=== PATIENT | female | born 1945 | race Caucasian/White ===

== ENCOUNTER 2016-10-12 10:44 | Outpatient (RCR) | payer MEDICARE, OTHER ==
[~2016-10-12 10:44] MED LIST: AMLO5TAB2 PO; ATEN-158 PO; AZIT250T5 PO; AZIT250T81 PO; BIOT1TAB12 PO; CHOL100084 PO; CLOP75TA PO; CYAN50TA PO; FLUT100B IH; FOLI1TAB24 PO; GEMF600T3 PO; LEVO500T2 PO; LEVO750T9 PO; LIPA1CAP67 PO; LORA1TAB PO; LOSA50TA6 PO; MAGN400C PO; MULT-608 PO; OMEG1CAP24 PO; OXYC1TAB95 PO; PRD20T PO; PRED10TA22 PO; PRED20TA PO; ZINC50TA5 PO
[2016-10-23] MEDS ORDERED: ALBU2.5V4 IH (18:57)
[2016-10-23] MEDS ORDERED: PRED10TA22 PO (18:57)
== END 2016-10-26 13:01 | disposition home or self-care (01) ==
PROVIDERS: ATTEND Physician Assistant
DX: M47.896 Other spondylosis, lumbar region (principal); M25.551 Pain in right hip; R10.2 Pelvic and perineal pain; M53.3 Sacrococcygeal disorders, not elsewhere classified

== ENCOUNTER 2016-10-23 15:50 | Emergency (ER) | payer MEDICARE, OTHER ==
[~2016-10-23] VITALS: Ht 175.3 cm; Wt 61.2 kg
[2016-10-23] MEDS ORDERED: RX-ALBUTEROL NEB 2.5 MG/3 ML PACK #5 IH ONE (16:01)
[2016-10-23] MEDS ORDERED: methylPREDNISolone 125 MG (Solu-MEDROL) VIAL ONE (16:08)
[2016-10-23] MEDS ORDERED: methylPREDNISolone 125 MG (Solu-MEDROL) VIAL IV STA (16:09)
[2016-10-23] MEDS ORDERED: RT-ALBUTEROL SULF 2.5 MG/3 ML PRE-MIX VIAL INH STA (16:13)
[2016-10-23] MEDS ORDERED: RT-IPRATROPIUM (ATROVENT) 0.5MG/2.5ML AMP IH ONE (16:15)
[2016-10-23 16:24] LABS: ABG BASE EXCESS 3.8 MMOL/L (-2.5-2.5); ABG HCO3 28 MMOL/L (23-27); ABG OXYGEN SATURATION 98 % (94-100); ABG PCO2 47 MMHG (35-45); ABG PO2 87 MMHG (79-93); ABG TCO2 29.8 MMOL/L (21.0-31.0); ALLENS TEST YES-POS; BASOPHILS % (AUTO) 1 % (0-10); EOSINOPHILS # (AUTO) 0.3 10^3/uL (0.0-0.3); EOSINOPHILS % (AUTO) 4 % (0-10); LYMPHOCYTES % (AUTO) 13 % (12-44); MEAN CORPUSCULAR HEMOGLOBIN 28 PG (25-34); MEAN CORPUSCULAR HGB CONC 33 G/DL (32-36); MEAN CORPUSCULAR VOLUME 86 FL (80-99); MEAN PLATELET VOLUME 9.3 FL (7.4-10.4); MONOCYTES # (AUTO) 0.7 X 10^3 (0.0-1.0); MONOCYTES % (AUTO) 9 % (0-12); NEUTROPHILS # (AUTO) 5.8 X 10^3 (1.8-7.8); NEUTROPHILS % (AUTO) 74 % (42-75); PLATELET COUNT 258 10^3/uL (130-400); RED BLOOD COUNT 5.11 10^6/uL (4.35-5.85); RED CELL DISTRIBUTION WIDTH 14.1 % (10.0-14.5); WHITE BLOOD COUNT 7.9 10^3/uL (4.3-11.0)
[2016-10-23 16:25] LABS: PATIENT TEMP 98.4
[2016-10-23] MEDS ORDERED: LORazepam INJ 2 MG/ML (ATIVAN) VIAL IVP ONE (16:30)
--- NOTE | 2016-10-23 16:31 | Diagnostic Imaging Report ---
INDICATION: Shortness of breath. Comparison with 09/05/2015. FINDINGS: Rather severe obstructive pulmonary disease is again noted bilaterally. There has been development of consolidated infiltrate in the right lower lobe since previous exam. The heart is mildly enlarged today. There is no evidence of pulmonary edema. No pneumothorax. There is minimal right basilar effusion. IMPRESSION: Findings are consistent with development of right lower lobe pneumonia superimposed on rather severe obstructive lung disease. Dictated by: Dictated on workstation # [id number]
[2016-10-23] MEDS ORDERED: IOHEXOL 350 MG/ML 150 ML (OMNIPAQUE 350) VIAL IV ONE (16:45)
[2016-10-23] MEDS ORDERED: NS 100 ML (IVPB) BAG IV ONE (16:45)
[2016-10-23 16:47] LABS: ALANINE AMINOTRANSFERASE 13 U/L (0-55); ALBUMIN 4.6 G/DL (3.2-4.5); ANION GAP 9 MMOL/L (5-14); ASPARTATE AMINO TRANSFERASE 18 U/L (5-34); BILIRUBIN,TOTAL 0.9 MG/DL (0.1-1.0); BLOOD UREA NITROGEN 9 MG/DL (7-18); BUN/CREATININE RATIO 13; CARBON DIOXIDE 32 MMOL/L (21-32); CHLORIDE 102 MMOL/L (98-107); CREATININE SERUM 0.72 MG/DL (0.60-1.30); GFR ESTIMATED > 60; GLUCOSE 107 MG/DL (70-105); MAGNESIUM 2.3 MG/DL (1.8-2.4); POTASSIUM 3.6 MMOL/L (3.6-5.0); SODIUM 143 MMOL/L (135-145); TOTAL PROTEIN 7.1 G/DL (6.4-8.2)
[2016-10-23 16:53] LABS: TROPONIN I < 0.30 NG/ML (<0.30)
[2016-10-23 16:59] LABS: PROTHROMBIN TIME PATIENT 13.2 SEC (12.2-14.7)
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
--- NOTE | 2016-10-23 17:27 | Diagnostic Imaging Report ---
PROCEDURE: CT angiography of the chest with contrast and CT abdomen and pelvis with contrast. TECHNIQUE: Multiple contiguous axial images were obtained through the chest, abdomen and pelvis after administration of intravenous contrast. Reconstructed MIP CT angiography acquisitions of the aorta were then performed. INDICATION: Shortness of air, back pain. History of abdominal aortic aneurysm. CORRELATION STUDY: CT abdomen 10/23/2015, CTA chest 07/11/2015. FINDINGS: CT CHEST: Very slight prominent appearance about the ascending aorta, within normal limits at 3.4 cm. There is mild mural plaque like formation, particularly within the arch and descending thoracic aorta. Definitive filling defect to suggest dissection is not present. No periaortic fluid collection suggested. The heart size is upper limits of normal. There is the presence of coronary artery calcification. The pulmonary arterial tree is without significant filling defect to suggest a pulmonary embolism. No pathologically enlarged thoracic lymphadenopathy. EG junction has a small hiatal hernia. Lung alex are with emphysematous type changes. No significant infiltrate. No pleural effusion. CT ABDOMEN and PELVIS: There is presence of an infrarenal abdominal aortic aneurysm. There is presence of an endovascular stent graft. There is slight irregular contour about the lumen of the stent graft but is patent. Maximum dimensions of the aneurysmal sac is 3.6 x 3.6 cm. No abnormal contrast extravasation is suggested to reflect an endoleak. The superior mesenteric artery appears to be somewhat small in caliber. No significant periaortic fluid collection. Slight asymmetric area of enhancement of the right common femoral vein could be reflective of a small arteriovenous fistula. Diffuse fatty infiltration of the liver parenchyma without focal lesion. Gallbladder is absent with clips in the fossa. Spleen, atrophic pancreas and adrenal glands appear unremarkable. Kidneys are with normal enhancement. No hydronephrosis. There are a few mildly prominent enhancing loops of small bowel in the lower abdomen and pelvis. This could be reflective of perhaps nonspecific enteritis. No findings to suggest obstruction. No significant abdominal ascites or free air. Mild severity fecal retention. Normal appendix projects posteriorly from cecum in the right hemipelvis. The urinary bladder is mildly distended. Uterus is absent. Osseous structures demonstrate degenerative changes with mild left convexity scoliosis. IMPRESSION: CT CHEST: 1. Mild atheromatous changes about the thoracic aorta. No evidence for significant aneurysm, dilatation or dissection. 2. Advanced emphysematous changes of the lung parenchyma. 3. Negative for acute abnormality of the chest. CT ABDOMEN and PELVIS: 1. Infrarenal abdominal aortic aneurysm with presence of and endovascular stent graft. No evidence to suggest an endoleak. 2. Question of slight prominent enhancement of the loops of small bowel could reflect nonspecific enteritis. Clinical correlation with symptoms. 3. Hepatic steatosis. Dictated by: Dictated on workstation # [id number]
[2016-10-23] MEDS ORDERED: RX-ALBUTEROL NEB 2.5 MG/3 ML PACK #5 IH STA (18:51)
[2016-10-23] MEDS ORDERED: PRED10TA22 PO (18:57)
[2016-10-23] MEDS ORDERED: ALBU2.5V4 IH (18:57)
[2016-10-23] MEDS ORDERED: predniSONE 20 MG TAB PO ONE (19:00)
[2016-10-23 19:10] VITALS: BP 100/66
== END 2016-10-23 19:25 | disposition home or self-care (01) ==
LOC: EDUNIT# 15:50 → ER 15:52
DX: J44.1 Chronic obstructive pulmonary disease with (acute) exacerbation (principal); I10 Essential (primary) hypertension; F17.210 Nicotine dependence, cigarettes, uncomplicated; M54.5 Low back pain; G89.29 Other chronic pain; Z79.02 Long term (current) use of antithrombotics/antiplatelets; Z79.899 Other long term (current) drug therapy; Z87.19 Personal history of other diseases of the digestive system
CPT/HCPCS: 36415; 71010; 71275; 74174; 80053; 82805; 83690; 83735; 83880; 84484; 85025; 85610; 85730; 93005; 93041; 94640; 94664; 96374; 96375

== ENCOUNTER → 2016-11-14 | Emergency (ER) | payer MEDICARE, OTHER ==
[~2016-11-14] VITALS: Ht 167.6 cm; Wt 44.9 kg
[~2016-11-14] MED LIST changes: +ALBU2.5V4 IH; +KCL 10 MEQ TAB (MICRO K) PO ONE; +RT-ALBUTEROL/IPRATROPIUM 3 ML (DUONEB) VIAL INH ONE; +methylPREDNISolone 125 MG (Solu-MEDROL) VIAL IVP ONE
[2016-11-14 15:18] LABS: BASOPHILS % (AUTO) 1 % (0-10); EOSINOPHILS # (AUTO) 0.2 10^3/uL (0.0-0.3); EOSINOPHILS % (AUTO) 3 % (0-10); LYMPHOCYTES # (AUTO) 1.2 X 10^3 (1.0-4.0); LYMPHOCYTES % (AUTO) 16 % (12-44); MEAN CORPUSCULAR HEMOGLOBIN 28 PG (25-34); MEAN CORPUSCULAR HGB CONC 32 G/DL (32-36); MEAN CORPUSCULAR VOLUME 86 FL (80-99); MEAN PLATELET VOLUME 9.1 FL (7.4-10.4); MONOCYTES # (AUTO) 0.6 X 10^3 (0.0-1.0); MONOCYTES % (AUTO) 8 % (0-12); NEUTROPHILS # (AUTO) 5.3 X 10^3 (1.8-7.8); NEUTROPHILS % (AUTO) 73 % (42-75); PLATELET COUNT 232 10^3/uL (130-400); RED BLOOD COUNT 4.33 10^6/uL (4.35-5.85); RED CELL DISTRIBUTION WIDTH 14.2 % (10.0-14.5); WHITE BLOOD COUNT 7.3 10^3/uL (4.3-11.0)
[2016-11-14 15:31] LABS: PROTHROMBIN TIME PATIENT 13.3 SEC (12.2-14.7)
--- NOTE | 2016-11-14 15:32 | Diagnostic Imaging Report ---
INDICATION: Dyspnea. EXAMINATION: PA and lateral views of the chest are obtained with comparison made to study of 10/23/2016. FINDINGS: There is bilateral air trapping. No pneumothorax or consolidation is identified. There is no significant pleural fluid. There is mild anterior compression deformity of a lower thoracic vertebral body. IMPRESSION: Emphysema which may be due to COPD. Otherwise, no acute abnormalities identified. Dictated by: Dictated on workstation # [id number]
[2016-11-14 15:40] LABS: ALANINE AMINOTRANSFERASE 11 U/L (0-55); ALBUMIN 4.1 G/DL (3.2-4.5); ANION GAP 9 MMOL/L (5-14); ASPARTATE AMINO TRANSFERASE 13 U/L (5-34); BILIRUBIN,TOTAL 0.5 MG/DL (0.1-1.0); BLOOD UREA NITROGEN 13 MG/DL (7-18); BUN/CREATININE RATIO 14; CALCIUM 9.6 MG/DL (8.5-10.1); CARBON DIOXIDE 30 MMOL/L (21-32); CHLORIDE 106 MMOL/L (98-107); CREATININE SERUM 0.93 MG/DL (0.60-1.30); GFR ESTIMATED 60; GLUCOSE 107 MG/DL (70-105); LIPASE 54 U/L (8-78); MAGNESIUM 2.3 MG/DL (1.8-2.4); POTASSIUM 3.2 MMOL/L (3.6-5.0); SODIUM 145 MMOL/L (135-145); TOTAL PROTEIN 6.3 G/DL (6.4-8.2)
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
[2016-11-14 15:48] LABS: MYOGLOBIN SERUM 44.1 NG/ML (10.0-92.0)
[2016-11-14 16:12] VITALS: BP 124/70
== END | disposition home or self-care (01) ==
LOC: EDUNIT# 13:58 → ER 14:01
DX: J44.1 Chronic obstructive pulmonary disease with (acute) exacerbation (principal); R07.89 Other chest pain; E87.6 Hypokalemia; I10 Essential (primary) hypertension; Z87.891 Personal history of nicotine dependence; Z79.899 Other long term (current) drug therapy
CPT/HCPCS: 36415; 71020; 80053; 83690; 83735; 83874; 84484; 85025; 85610; 85730; 93005; 93041; 94640; 96374

== ENCOUNTER → 2017-07-20 | Outpatient (CLI) | payer MEDICARE, OTHER ==
[~2017-07-20] MED LIST changes: +AZIT250T12 PO; -AZIT250T5 PO; -KCL 10 MEQ TAB (MICRO K) PO ONE; -RT-ALBUTEROL/IPRATROPIUM 3 ML (DUONEB) VIAL INH ONE; -methylPREDNISolone 125 MG (Solu-MEDROL) VIAL IVP ONE
--- NOTE | 2017-07-20 10:55 | Diagnostic Imaging Report ---
PROCEDURE: CT abdomen and pelvis without contrast. TECHNIQUE: Multiple contiguous axial images were obtained through the abdomen and pelvis without the use of intravenous contrast. INDICATION: Hematuria and right-sided posterior abdominal pain. Comparison is made with prior CT from 10/23/2015. FINDINGS: The lung bases are clear. No discrete liver mass is identified. Gallbladder is surgically absent. Pancreas and spleen are unremarkable. No definite adrenal mass is identified. Nonobstructive calculi are again noted in both kidneys. No definite ureteral calculi or hydronephrosis is detected. Infrarenal abdominal aortic aneurysm treated with an aortic stent graft is again noted. Small and large bowel loops are normal caliber. There is no ascites. Bladder is unremarkable. Right hip prosthesis does produce moderate beam hardening artifact throughout the pelvis. IMPRESSION: Overall stable CT of the abdomen and pelvis when compared with exam from 10/23/2015. There are bilateral nonobstructing renal calculi. No definite ureteral calculi or hydronephrosis is detected. Dictated by: Dictated on workstation # [id number]
== END ==
LOC: RAD 08:56
PROVIDERS: ATTEND Urology
DX: N20.0 Calculus of kidney (principal)
CPT/HCPCS: 74176

== ENCOUNTER 2019-10-08 22:43 | Emergency (ER) | payer MEDICARE ==
[~2019-10-08] VITALS: Ht 170 cm; Wt 51.8 kg
--- OUTSIDE RECORDS SUMMARY | 2019-10-08 22:52 | XMS REPORT | Clinical Summary ---
Author Author [facility] Organization [facility] Address Unknown Phone Unavailable Care Team Providers Care Weed Science Research Technician Name Role Phone PCP Unavailable Source Comments Some departments are not documenting in the electronic medical record. If you d o not see the information that you expected, contact Release of Information in [facility] [place] Information Management department at [phone] for further assistan ce in locating additional records.[facility] Allergies No Known Allergies Medications End Date Status Medication Sig Dispensed Refills Start Date Active FLAXSEED OIL (OMEGA 3 PO) Take 1 Tab by 0 mouth daily. Active atenolol (TENORMIN) 50 mg Take 50 mg by 0 tablet mouth daily. Active FOLIC ACID PO Take by 0 mouth. Active LORazepam (ATIVAN) 1 mg Take 1 mg by 0 tablet mouth. Active losartan(+) (COZAAR) 100 Take 100 mg 0 mg tablet by mouth daily. Active MULTIVITAMIN PO Take 1 Tab by 0 mouth daily. Active clopiDOGrel (PLAVIX) 75 Take 75 mg by 0 mg tablet mouth daily. Active fluticasone-vilanterol(+) Inhale 1 Puff 0 (BREO ELLIPTA) 100-25 mcg by mouth into inhalation disk the lungs daily. Active gemfibrozil (LOPID) 600 Take 600 mg 0 mg tablet by mouth. Active prednisone (DELTASONE) 10 Take 10 mg by 0 mg tablet mouth every [address] Take 40 mg by 0 (PROTONIX) 40 mg tablet mouth daily. Active albuterol (PROAIR HFA) 90 Inhale 2 0 mcg/actuation inhaler Puffs by mouth into the lungs every 6 hours as needed for Wheezing or Shortness of Breath. Shake well before use. Active fluticasone (FLONASE) 50 Apply to 0 mcg/actuation nasal spray each nostril as directed twice daily. Shake bottle gently before using. Active pancrelipase (CREON) Take by 0 36,000-114,000- 180,000 mouth three unit capsule times daily with meals. Active OXYCODONE HCL (OXYCODONE Take by 0 PO) mouth. 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 Last Filed Vital Signs Reading Time Taken Comments Vital Sign 148/75 11/22/2016 12:04 PM CDT Blood Pressure 66 11/22/2016 12:04 PM CDT Pulse - - Temperature - - Respiratory Rate - - Oxygen Saturation - - Inhaled Oxygen Concentration 44.9 kg (99 lb) 11/22/2016 12:04 PM CDT Weight 170.2 cm (5' 7") 11/22/2016 12:04 PM CDT Height 15.51 11/22/2016 12:04 PM CDT Body Mass Index Plan of Treatment Health Maintenance Due Date Last Done Comments DTAP/TDAP VACCINES (1 - 1957 Tdap) HEPATITIS C SCREENING 1964 PHYSICAL (COMPREHENSIVE) 1964 EXAM BREAST CANCER SCREENING 1986 COLORECTAL CANCER 1996 SCREENING SHINGLES RECOMBINANT 1996 VACCINE (1 of 2) OSTEOPOROSIS 12/30/2011 SCREENING/MONITORING PNEUMONIA (PCV13/PPSV23) 12/30/2011 VACCINES (1 of 2 - PCV13) INFLUENZA VACCINE 01/25/2020 Results Not on filefrom Last 3 Months
--- OUTSIDE RECORDS SUMMARY | 2019-10-08 22:52 | XMS REPORT ---
Author Author [facility] Organization [facility] Address [address] [address] Care Team Providers Care Special Services Coordinator Name Role Phone NO, LOCAL PHYSICIAN Unavailable Unavailable ORLIN ENRIQUEZ Unavailable NO, LOCAL PHYSICIAN Unavailable Unavailable XIMENA DENT Unavailable NO, LOCAL PHYSICIAN Unavailable Unavailable RICKIE LEWIS, YULIANA Albright Unavailable Unavailable KARLA WALKER Unavailable Unavailable CIERA BOSE Unavailable Unavailable Allergies Normalized Allergy Reported Date of Reaction(s) Care Provider Facility Allergy Type classification allergen Allergy Onset DA (13 Unclassified No Known Drug 11-15-2014 - no information TANISHA Not Available sources.) Allergies DENNY MCKENZIE ([id number]) no information Unclassified NO KNOWN DRUG UNKNOWN [facility] (2 sources.) ALLERGIES [facility] ([id number]) Medications No Information Problems Active Problems Problem Normalized Date of Normalized Normalized Provider Fac ility Classification Problem(s) Problem Problem Problem Sta tus Onset/Resoluti Duration on Superficial Abrasion of Episodic Active no name no infor mation injury; right forearm, contusion (5 initial sources.) encounter Translations: [ ABRASION OR FRICTION BURN OF ELBOW, FOREARM, AND WRIST, WITHOUT MENTION OF INFECTION] Peripheral and Atherosclerosi Chronic Active no name no information visceral s of other atherosclerosi arteries s (3 sources.) Translations: [ PERIPHERAL VASCULAR DISEASE, UNSPECIFIED] Coronary Atheroscleroti Chronic Active no name no info rmation atherosclerosi c heart s and other disease of heart disease [place] (3 sources.) coronary artery without angina pectoris 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 no 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; supplemental insufficiency; oxygen arrest (3 sources.) Aortic; 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 infor mation peripheral; carotid artery and visceral artery aneurysms (3 sources.) Essential Essential Chronic Active TANISHA Not Availabl e hypertension (primary) DENNY MCKENZIE ([id number]) (8 sources.) hypertension NEGATED Knee joint Chronic Active no name no informat ion no replacement information (5 sources.) Open wounds of Laceration Episodic Active no name no inf ormation extremities (4 without sources.) foreign body of right forearm, initial encounter Translations: [ OPEN WOUND OF FOREARM, WITHOUT MENTION OF COMPLICATION] Substance-rela Nicotine Chronic Active TANISHA Not Avai lable leana disorders dependence, DENNY MCKENZIE ([id number]) (13 sources.) cigarettes, in remission Translations: [ NICOTINE DEPENDENCE, CIGARETTES, UNCOMPL] Other nervous Other chronic Chronic Active TANISHA Not Available system pain DENNY MCKENZIE ([id number]) disorders (4 sources.) NEGATED Other Episodic Active no name no informatio n no postprocedural information (6 status sources.) NEGATED Presence of Chronic Active no name no informa tion no right information (5 artificial sources.) knee joint Sprains and Sprain of Episodic Active no name no informa tion strains (6 unspecified sources.) site of right knee, initial encounter Translations: [ SPRAIN OF UNSPECIFIED SITE OF KNEE AND LEG] NEGATED Weakness Episodic Active no name no informatio n no Translations: information (3 [ OTHER sources.) MALAISE AND FATIGUE] Past or Other Problems Problem Normalized Date of Normalized Normalized Provider Fac ility Classification Problem(s) Problem Problem Problem Sta tus Onset/Resoluti Duration on NEGATED Calculus of Episodic Completed no name Not Availa ble no kidney ([id number]) information (6 sources.) Other lower Cough Episodic Completed no name no informat ion respiratory disease (3 sources.) Other nursing home Episodic Completed TANISHA Not Availabl e aftercare (4 (current) use DENNY MCKENZIE ([id number]) sources.) of antithrombotic s/antiplatelet s Other Other long Episodic Completed TANISHA Not Availab le aftercare (8 term (current) DENNY MCKENZIE ([id number]) sources.) drug therapy NEGATED Other Episodic Completed YULIANA Not Available no nonspecific BRUEGGEMANN , ([id number]) information (3 abnormal MD sources.) finding of lung field NEGATED Other no information no information no name no information no specified information (6 postprocedural sources.) states Spondylosis; Other no information Completed KARLA SANDERS , No t Available intervertebral spondylDENNY peterson ([id number]) disc lumbar region disorders; Translations: other back [ problems (5 SACROCOCCYGEAL sources.) DISORDERS, NOT ELSEWHERE ] Other Pain in right Episodic Completed KARLA TOMMY , Not A vailable non-traumatic hip [place] ([id number]) joint disorders (4 sources.) Abdominal pain Pelvic and no information no information KARLA N EFF , Not Available (4 sources.) perineal pain [place] ([id number]) Screening or Personal Episodic Completed YULIANA Not Availa ble history of history of BRUEGGEMANN , ([id number]) mental health nicotine MD and substance dependence abuse (4 sources.) Other Personal Episodic Completed TANISHA Not Available gastrointestin history of DENNY MCKENZIE ([id number]) al disorders other diseases (4 sources.) of the digestive system Pneumonia (2 Pneumonia, Episodic Completed no name no infor mation sources.) unspecified organism Other lower Shortness of Episodic Completed TANISHA Not Khadra ilable respiratory breath DENNY MCKENZIE ([id number]) disease (4 sources.) Procedures The data below is from unstructured sourcesNo known history of procedures.No known history of procedures.No known history of procedures. Immunizations No Information Results The data below is from unstructured sourcesNo known relevant diagnostic tests, laboratory data and/or discharge summary. Vital Signs The data below is from unstructured sources Vital Response Date/Time Temperature (Fahrenheit) 98.4 degree s F (97.6 - 99.5) 10/23/2016 4:10pm Temperature (Calculated Celsius) 36. 94596 degrees C (36.4 - 37.5) 10/23/2016 4:10pm Temperature Source Tympanic 10/23/2016 4:10pm Pulse Rate (adult) 86 bpm (60 - 90) 10/23/2016 7:10pm Respiratory Rate 14 bpm (12 - 24) 10/23/2016 7:10pm O2 Sat by Pulse Oximetry 96 % (88 - 100) 10/23/2016 7:10pm Blood Pressure 100/66 mm Hg 10/23/2016 7:10pm Blood Pressure Mean 133 mm Hg 10/23/2016 4:10pm Pain Numeric Pain Scale 0-No Pain 10/23/2016 7:10pm Height (Feet) 5 feet 4:10pm Height (Inches) 9.00 inches 10/23/2016 4:10pm Height (Calculated Centimeters) 175. 892125 cm 10/23/2016 4:10pm Weight (Pounds) 135 pounds 10/23/2016 4:10pm Weight (Calculated Kilograms) 61.234 971 kilograms 10/23/2016 4:10pm Capillary Refill Capillary Refill Greater Than 3 Seconds 10/23/2016 4:10pm Height 5 ft 9 in 017 4:10pm Weight 135 lb 10/23/2016 4:10pm Body Mass Index 19.9 kg/m^2 10/23/2016 4:10pm Vital Response Date/Time Temperature (Fahrenheit) 98.7 degree s F (97.6 - 99.5) 06/07/2015 2:03pm Temperature (Calculated Celsius) 37. 72398 degrees C (36.4 - 37.5) 06/07/2015 2:03pm Temperature Source Temporal 06/07/2015 2:03pm Pulse Rate (adult) 65 bpm (60 - 90) 06/07/2015 2:03pm Respiratory Rate 18 bpm (12 - 24) 06/07/2015 2:03pm O2 Sat by Pulse Oximetry 98 % (88 - 100) 06/07/2015 2:14pm Blood Pressure 142/83 mm Hg 06/07/2015 2:03pm Blood Pressure Mean 102 mm Hg 06/07/2015 2:03pm Pain Pain Intensity 0 2014 2:03pm Height (Feet) 5 feet 2:03pm Height (Inches) 7 inches 06/07/2015 2:03pm Height (Calculated Centimeters) 170. 396578 cm 06/07/2015 2:03pm Weight (Pounds) 114 pounds 06/07/2015 2:03pm Weight (Calculated Kilograms) 51.709 531 kilograms 06/07/2015 2:03pm Calculated BMI 17.85 2:03pm Vital Response Date/Time Temperature Source Temporal 07/11/2015 5:20pm Pulse Rate (adult) 68 bpm (60 - 90) 07/11/2015 5:20pm Respiratory Rate 20 bpm (12 - 24) 07/11/2015 5:20pm O2 Sat by Pulse Oximetry 97 % (88 - 100) 07/11/2015 5:20pm Blood Pressure 120/74 mm Hg 07/11/2015 5:20pm Blood Pressure Mean 74 mm Hg 07/11/2015 2:08pm Pain Pain Intensity 0 2015 5:20pm Height (Centimeters) 170 cm 07/11/2015 2:08pm Weight (Calculated Grams) 52218.000 gm 07/11/2015 2:08pm Weight (Kilograms) 51.8 kg 07/11/2015 2:08pm Vital Response Date/Time Temperature (Fahrenheit) 96.2 degree s F (97.6 - 99.5) 09/05/2015 9:34am Temperature (Calculated Celsius) 35. 72734 degrees C (36.4 - 37.5) 09/05/2015 9:34am Temperature Source Temporal 09/05/2015 9:34am Pulse Rate (adult) 77 bpm (60 - 90) 09/05/2015 12:30pm Respiratory Rate 18 bpm (12 - 24) 09/05/2015 12:30pm O2 Sat by Pulse Oximetry 97 % (88 - 100) 09/05/2015 12:30pm Blood Pressure 115/46 mm Hg 09/05/2015 12:30pm Blood Pressure Mean 95 mm Hg 09/05/2015 9:34am Pain Pain Intensity 0 2015 9:34am Height (Feet) 5 feet 05/2016 9:34am Height (Inches) 3 inches 09/05/2015 9:34am Height (Calculated Centimeters) 160. 899088 cm 09/05/2015 9:34am Weight (Pounds) 110 pounds 09/05/2015 9:34am Weight (Calculated Kilograms) 49.895 161 kilograms 09/05/2015 9:34am Calculated BMI 19.48 05/2016 9:34am Vital Response Date/Time Temperature Source Temporal 07/11/2015 2:08pm Pulse Rate (adult) 62 bpm (60 - 90) 07/11/2015 2:08pm Respiratory Rate 25 bpm (12 - 24) 07/11/2015 2:08pm O2 Sat by Pulse Oximetry 97 % (88 - 100) 07/11/2015 2:47pm Blood Pressure 113/55 mm Hg 07/11/2015 2:08pm Blood Pressure Mean 74 mm Hg 07/11/2015 2:08pm Pain Pain Intensity 0 2015 2:08pm Height (Centimeters) 170 cm 07/11/2015 2:08pm Weight (Calculated Grams) 19382.000 gm 07/11/2015 2:08pm Weight (Kilograms) 51.8 kg 07/11/2015 2:08pm Height 5 ft 6.93 in Weight 114 lb Body Mass Index 17.0 kg/m^2 Vital Response Date/Time Temperature (Fahrenheit) 98.1 degree s F (97.6 - 99.5) Temperature (Calculated Celsius) 36. 52994 degrees C (36.4 - 37.5) Pulse Rate (adult) 82 bpm (60 - 90) Respiratory Rate 16 bpm (12 - 24) O2 Sat by Pulse Oximetry 100 % (88 - 100) Blood Pressure 145/67 mm Hg Pain Pain Intensity 3 Height (Feet) 5 feet Height (Inches) 7 inches Height (Calculated Centimeters) 170. 818032 cm Weight (Pounds) 114 pounds Weight (Calculated Kilograms) 51.709 531 kilograms Calculated BMI 17.85 Vital Response Date/Time Temperature (Fahrenheit) 97.5 degree s F (97.6 - 99.5) 11/14/2016 4:12pm Temperature (Calculated Celsius) 36. 94109 degrees C (36.4 - 37.5) 11/14/2016 4:12pm Pulse Rate (adult) 68 bpm (60 - 90) 11/14/2016 4:12pm Respiratory Rate 16 bpm (12 - 24) 11/14/2016 4:12pm O2 Sat by Pulse Oximetry 90 % (88 - 100) 11/14/2016 4:12pm Blood Pressure 124/70 mm Hg 11/14/2016 4:12pm Blood Pressure Mean 88 mm Hg 11/14/2016 2:38pm Pain Numeric Pain Scale 0-No Pain 11/14/2016 4:12pm Height (Feet) 5 feet 2:38pm Height (Inches) 6.00 inches 11/14/2016 2:38pm Height (Calculated Centimeters) 167. 248396 cm 11/14/2016 2:38pm Weight (Pounds) 99 pounds 11/14/2016 2:38pm Weight (Calculated Kilograms) 44.905 645 kilograms 11/14/2016 2:38pm Capillary Refill Capillary Refill Less Than 3 Seconds 11/14/2016 2:38pm Height 5 ft 6 in 017 2:38pm Weight 99 lb 11/14/2016 2:38pm Body Mass Index 16.0 kg/m^2 11/14/2016 2:38pm Vital Response Date/Time Temperature (Fahrenheit) 97.5 degree s F (97.6 - 99.5) 11/14/2016 4:12pm Temperature (Calculated Celsius) 36. 21256 degrees C (36.4 - 37.5) 11/14/2016 4:12pm Pulse Rate (adult) 68 bpm (60 - 90) 11/14/2016 4:12pm Respiratory Rate 16 bpm (12 - 24) 11/14/2016 4:12pm O2 Sat by Pulse Oximetry 90 % (88 - 100) 11/14/2016 4:12pm Blood Pressure 124/70 mm Hg 11/14/2016 4:12pm Blood Pressure Mean 88 mm Hg 11/14/2016 2:38pm Pain Numeric Pain Scale 0-No Pain 11/14/2016 4:12pm Height (Feet) 5 feet 2:38pm Height (Inches) 6.00 inches 11/14/2016 2:38pm Height (Calculated Centimeters) 167. 249729 cm 11/14/2016 2:38pm Weight (Pounds) 99 pounds 11/14/2016 2:38pm Weight (Calculated Kilograms) 44.905 645 kilograms 11/14/2016 2:38pm Capillary Refill Capillary Refill Less Than 3 Seconds 11/14/2016 2:38pm Height 5 ft 6 in 017 2:38pm Weight 99 lb 11/14/2016 2:38pm Body Mass Index 16.0 kg/m^2 11/14/2016 2:38pm Interventions No Information Plan of Treatment The data below is from unstructured sources Discharge Date 10/23/16 7:25pm Disposition 01 HOME, SELF-CARE Condition at Discharge Improved Instructions/Education Provided FOOD TASTER MAXIMILIANO PAIN Exacerbation of COPD (DC) Chronic Pancreatitis (DC) Prescriptions See Medication Section Referrals ORLIN ENRIQUEZ MD Order Date: Primary Care Physician Address: [address] [place] [address] Additional Instructions/Education Al l discharge instructions reviewed with patient and/or family. Voiced understanding. medications as instructed. Continue usual home medications. Follow-up with Dr. cooper on November 03 as previously scheduled or sooner if needed. Return to the emergency department immediately for worsened shortness of air, back pain, fever, chest pain, dizziness, abdominal pain, vomiting, decreased urination, inability to urinate, or any other concerns. Discharge Date 06/07/15 3:57pm Disposition 01 HOME, SELF-CARE Condition at Discharge Improved Instructions/Education Provided Physician Obstetrician maximiliano Obstructive Pulmonary Disease (DC) Prescriptions See Medication Section Referrals NO,[facility] Physician Additional Instructions/Education 1. Return to ER for any fevers or worsening shortness of breath 2. Use your supplemental oxygen as neede d 3. Take steroids as directed 4. Follow-up with Dr. Dent later thi s week. Call his office tomorrow to make an appointment All discharge instructions reviewed with patient and/or family. Voiced understanding. Prescriptions Discharge Date 09/05/15 12:30pm Disposition 01 HOME, SELF-CARE Condition at Discharge Improved Prescriptions See Medication Section Referrals NO,[facility] Physician Discharge Date 07/11/15 5:20pm Disposition 01 HOME, SELF-CARE Condition at Discharge Improved Instructions/Education Provided Physician Obstetrician maximiliano Obstructive Pulmonary Disease (ED) Bacterial Pneumonia (ED) Prescriptions See Medication Section Referrals BRENDA NAVAS,[facility] - Primary Care Physician Additional Instructions/Education Fo llow up with Dr. Garcia or Dr. Corona early next week. Dr. Garcia can see you in the office on Monday. You can contact his office at [phone] on Monday to schedule the appointment. Please notify the surgeon's office that you were seen in the ER and instructed to promptly follow up with a vascular surgeon. Take your CD of images with you. Immediately return to the ER or call 911 if you ever develop symptoms of stroke including numbness or weakness, facial drooping, difficulty speaking, abrupt visual changes, or any other unusual neurologic problems. Continue taking Plavix for stroke prevention. The nature of your lung infiltrates is uncertain. It could be related to scarring, infection such as pneumonia, or mass. Follow-up imaging and referral to a customer account technician is recommended. Complete the entire course of antibiotics as prescribed. Follow-up with your primary care provider as soon as possible. Contact information for Dr. Navas's office is included. Please return to emergency room if you have worsening symptoms. Stay well-hydrated. Discontinue Norvasc (amlodipine) for one week or until follow-up with your primary care provider to determine if that improves your dizziness. Use your oxygen continuously. All discharge instructions reviewed with patient and/or family. Voiced understanding. Discharge Date 11/14/16 4:12pm Disposition 01 HOME, SELF-CARE Condition at Discharge Improved Instructions/Education Provided Ches t Pain Prescriptions See Medication Section Referrals NO,LOCAL PHYSICIAN Order Date: Primary Care Physician Additional Instructions/Education Co ntinue with your current medications. Follow-up with your primary care provider as soon as possible to review medications and started on inhaled maintenance medications for your COPD. Remained free of tobacco/smoking exposure. Complete your steroids as prescribed. Also discussed referral to a cone operator with your primary care provider. Return to the emergency room if symptoms worsen. All discharge instructions reviewed with patient and/or family. Voiced understanding. Discharge Date 11/14/16 4:12pm Disposition 01 HOME, SELF-CARE Condition at Discharge Improved Instructions/Education Provided Ches t Pain Prescriptions See Medication Section Referrals NO,LOCAL PHYSICIAN Order Date: Primary Care Physician Additional Instructions/Education Co ntinue with your current medications. Follow-up with your primary care provider as soon as possible to review medications and started on inhaled maintenance medications for your COPD. Remained free of tobacco/smoking exposure. Complete your steroids as prescribed. Also discussed referral to a cone operator with your primary care provider. Return to the emergency room if symptoms worsen. All discharge instructions reviewed with patient and/or family. Voiced understanding. Goals No Information Social History No Information Functional Status The data below is from unstructured sourcesNo functional status information available.No functional status results.No functional status results.No functional status results.No functional status results.No functional status results.No functional status results.No functional status results.No functional status results.No functional status results.No functional status results.No functional status information available.No functional status inf ormation available. Mental Status No Information Encounters Encounter Normalized Encounter Encounter Diagnosis Care Provi elida Organization Date Type 01-29-2018 Patient encounter no information no name (no phone) no organization name - (no phone) 01-29-2018 NEGATED Patient encounter no information no name (no phone) no organization name 01-09-2018 (no phone) - 01-18-2018 01-05-2018 Patient encounter no information no name (no phone) no organization name - (no phone) 01-06-2018 07-20-2017 Patient encounter no information no name (no phone) no organization name (no phone) 10-12-2016 Patient encounter no information no name (no phone) no organization name - (no phone) 10-26-2016 NEGATED Patient encounter no information no name (no phone) no organization name 10-23-2015 (no phone) 10-20-2015 Patient encounter no information no name (no phone) no organization name (no phone) 02-06-2018 Patient encounter no information no name (no phone) no organization name - procedure (no phone) 02-07-2018 01-05-2018 Patient encounter no information no name (no phone) no organization name - procedure (no phone) 01-06-2018 10-23-2016 Patient encounter no information no name (no phone) no organization name procedure (no phone) 09-28-2016 Patient encounter no information no name (no phone) no organization name procedure (no phone) Medical Equipment No Information Payers Normalized Payer Value NEGATED no information Medicare Private Health Insurance no information Advance Directives Directive Response Recor ded Date/Time Advance Directives No 4:10pm Resuscitation Status Full Code 10/23/16 4:10pm Directive Response Recor ded Date/Time Advance Directives No 2:03pm Resuscitation Status Full Code 06/07/15 2:03pm Directive Response Recor ded Date/Time Advance Directives No 2:08pm Directive Response Recor ded Date/Time Advance Directives No 9:36am Resuscitation Status Full Code 09/05/15 9:36am Directive Response Recor ded Date/Time Advance Directives No 2:08pm Resuscitation Status Full Code 07/11/15 2:08pm Directive Response Recor ded Date/Time Advance Directives No 6:12pm Resuscitation Status Full Code 11/15/14 6:12pm Directive Response Recor ded Date/Time Advance Directives No 2:50pm Resuscitation Status Full Code 11/14/16 2:50pm Discharge Instructions No hospital discharge instruction information available.No hospital discharge instructions.Current inpatient/outpatient. Discharge instructions are currently unavailable.No hospital discharge instructions.No hospital discharge instructions.No hospital discharge instructions.No hospital discharge instruction information available. Additional Source Comments This clinical document has been generated using [employer] software that has been certified by the Office of the National Coordinator for Health Information Technology (ONC 15.99.04.3023.Diam.31.00.0.403269) and the National Committee for Still Operator Gin (NCQA, as an eMeasure certified technology). FOR RECORDS PERTAINING TO PATIENTS WHO ARE OR HAVE BEEN ENROLLED IN A CHEMICAL D EPENDENCY/SUBSTANCE ABUSE PROGRAM, SOME INFORMATION MAY BE OMITTED. This clinica l summary was aggregated from multiple sources. Caution should be exercised in using it in the provision of clinical care. This summary normalizes information from multiple sources, and as a consequence, information in this document may ma terially change the coding, format and clinical context of patient data. In jose tion, data may be omitted in some cases. CLINICAL DECISIONS SHOULD BE BASED ON T HE PRIMARY CLINICAL RECORDS. [employer] provides no warranty or guara ntee of the accuracy or completeness of information in this document.The followi ng information is based on time limited clinical information
--- OUTSIDE RECORDS SUMMARY | 2019-10-08 22:52 | XMS REPORT | Continuity of Care Document ---
Author Organization Unknown Address Unknown Phone Unavailable Allergies Active Description Code Type Severity Reaction Onset Reported/Identified Relationship to Patient Clinical Status Yes NO KNOWN DRUG ALLERGIES UNKNOWN NO KNOWN DRUG ALLERG Yes NO KNOWN DRUG ALLERGIES UNKNOWN UNKNOWN Yes No Known Drug Allergies [id number] Drug Allergy Unknown N/A 10/23/2016 Medications There is no data. 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, LUMBAR REGION 05/25/1300 KARLA WALKER Ot M53.3 SACROCOCCYGEAL DISORDERS, NOT ELSEWHERE 05/25/1300 KARLA WALKER Ot R10.2 PELVIC AND PERINEAL PAIN 11/15/2014 XIMENA BAEZA MD Ot 491.22 OBSTRUCTIVE CHRONIC BRONCHITIS WITH ACUT 11/15/2014 XIMENA BAEZA MD Ot 786.2 COUGH 06/07/2015 RICARDO BAUMAN APRN Ot F17.211 NICOTINE DEPENDENCE, CIGARETTES, IN [place] 06/07/2015 RICARDO BAUMAN APRN Ot J44 .1 CHRONIC OBSTRUCTIVE PULMONARY DISEASE W 07/11/2015 YULIANA DAMIAN MD Ot F17.211 NICOTINE DEPENDENCE, CIGARETTES, IN [place] 07/11/2015 YULIANA DAMIAN MD Ot I25.10 ATHSCL HEART DISEASE OF [place] CORONARY 07/11/2015 YULIANA DAMIAN MD Ot 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 9 09/05/2015 JCARLOS LEWIS, VISHAL Andino Ot F17.211 NICOTINE DEPENDENCE, CIGARETTES, IN [place] 09/05/2015 JCARLOS LEWIS, VISHAL Andino Ot J44. 0 CHRONIC OBSTRUCTIVE PULMON DISEASE W ACU 09/07/2015 JCARLOS LEWIS, VISHAL Andino Ot F17.211 09/07/2015 JCARLOS LEWIS, VISHAL Andino Ot J44. 0 10/21/2015 PRESTON LEWIS, NIXON A Ot N20.0 CALCULUS OF KIDNEY 10/26/2015 PRESTON LEWIS, NIXON A Ot N20.0 CALCULUS OF KIDNEY 10/30/2015 PRESTON LEWIS, NIXON A Ot N20.0 CALCULUS OF KIDNEY 11/04/2015 PRESTON LEWIS, NIXON A Ot N20.0 CALCULUS OF KIDNEY 11/20/2015 BRENDA WADE DO Ot J18. 9 PNEUMONIA, UNSPECIFIED ORGANISM 11/20/2015 PRESTON LEWIS, NIXON A Ot N20.0 CALCULUS OF KIDNEY 11/20/2015 PRESTON LEWIS, NIXON A Ot N20.0 CALCULUS OF KIDNEY 11/20/2015 PRESTON LEWIS, NIXON A Ot N20.0 CALCULUS OF KIDNEY 12/03/2015 PRESTON LEWIS, NIXON A Ot N20.0 CALCULUS OF KIDNEY 12/03/2015 PRESTON LEWIS, NIXON A Ot N20.0 CALCULUS OF KIDNEY 12/03/2015 PRESTON LEWIS, NIXON A Ot N20.0 CALCULUS OF KIDNEY 12/24/2015 PRESTON LEWIS, NIXON A Ot N20.0 CALCULUS OF KIDNEY 12/24/2015 PRESTON LEWIS, NIXON A Ot N20.0 CALCULUS OF KIDNEY 09/22/2016 BRENDA WADE DO Ot J18. 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, LUMBAR REGION 10/05/2016 TOMMY DENNY KARLA D Ot M53.3 SACROCOCCYGEAL DISORDERS, NOT ELSEWHERE 10/05/2016 TOMMY KRALA BALDWIN D Ot R10.2 PELVIC AND PERINEAL PAIN 10/23/2016 TANISHA CHAWLA Ot F17.210 NICOTINE DEPENDENCE, CIGARETTES, UNCOMPL 10/23/2016 TANISHA CHAWLA Ot G89.29 OTHER CHRONIC PAIN 10/23/2016 TANISHA CHAWLA Ot I 10 ESSENTIAL (PRIMARY) HYPERTENSION 10/23/2016 TANISHA CHAWLA Ot J44.1 CHRONIC OBSTRUCTIVE PULMONARY DISEASE W 10/23/2016 TANISHA CHAWLA Ot M54.5 LOW BACK PAIN 10/23/2016 TANISHA CHAWLA Ot R06.02 SHORTNESS OF BREATH 10/23/2016 TANISHA CHAWLA Ot 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 10/23/2016 TANISHA CHAWLA Ot Z79.899 OTHER [employer]ERK (CURRENT) DRUG THERAPY 10/23/2016 TANISHA CHAWLA Ot Z87.19 PERSONAL HISTORY OF OTHER DISEASES OF [place] 10/24/2016 TANISHA CHAWLA Ot F17.210 NICOTINE DEPENDENCE, CIGARETTES, UNCOMPL 10/24/2016 TANISHA CHAWLA Ot G89.29 OTHER CHRONIC PAIN 10/24/2016 TANISHA CHAWLA Ot I 10 ESSENTIAL (PRIMARY) HYPERTENSION 10/24/2016 TANISHA CHAWLA Ot J44.1 CHRONIC OBSTRUCTIVE PULMONARY DISEASE W 10/24/2016 TANISHA CHAWLA Ot M54.5 LOW BACK PAIN 10/24/2016 TANISHA CHAWLA Ot R06.02 SHORTNESS OF BREATH 10/24/2016 TANISHA CHAWLA Ot 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 10/24/2016 TANISHA CHAWLA Ot Z79.899 OTHER [facility] (CURRENT) DRUG THERAPY 10/24/2016 TANISHA CHAWLA Ot Z87.19 PERSONAL HISTORY OF OTHER DISEASES OF TH 10/26/2016 KARLA WALKER Ot M25.55 1 PAIN IN RIGHT HIP 10/26/2016 KARLA WALKER Ot 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, LUMBAR REGION 10/26/2016 KARLA WALKER Ot M53.3 SACROCOCCYGEAL DISORDERS, NOT ELSEWHERE 10/26/2016 KARLA WALKER Ot R10.2 PELVIC AND PERINEAL PAIN 11/14/2016 YULIANA DAMIAN MD Ot E87.6 HYPOKALEMIA 11/14/2016 YULIANA DAMIAN MD Ot I10 ESSENTIAL (PRIMARY) HYPERTENSION 11/14/2016 YULIANA DAMIAN MD Ot J44.1 CHRONIC OBSTRUCTIVE PULMONARY DISEASE W 11/14/2016 YULIANA DAMIAN MD Ot R07.89 OTHER CHEST PAIN 11/14/2016 YULIANA DAMIAN MD Ot Z79.899 OTHER [employer]ERK (CURRENT) DRUG THERAPY 11/14/2016 YULIANA DAMIAN MD Ot Z87.891 PERSONAL HISTORY OF NICOTINE DEPENDENCE 11/16/2016 YULIANA DAMIAN MD Ot E87.6 HYPOKALEMIA 11/16/2016 YULIANA DAMIAN MD Ot I10 ESSENTIAL (PRIMARY) HYPERTENSION 11/16/2016 YULIANA DAMIAN MD Ot J44.1 CHRONIC OBSTRUCTIVE PULMONARY DISEASE W 11/16/2016 YULIANA DAMIAN MD Ot R07.89 OTHER CHEST PAIN 11/16/2016 YULIANA DAMIAN MD Ot Z79.899 OTHER [facility] (CURRENT) DRUG THERAPY 11/16/2016 YULIANA DAMIAN MD Ot Z87.891 PERSONAL HISTORY OF NICOTINE DEPENDENCE 07/18/2017 SHERI DO, BRENDA M Ot J18. 9 PNEUMONIA, UNSPECIFIED ORGANISM 07/18/2017 PRESTON LEWIS, NIXON A Ot N20.0 CALCULUS OF KIDNEY 07/18/2017 PRESTON LEWIS, NIXON A Ot N20.0 CALCULUS OF KIDNEY 07/20/2017 BRENDA WADE DO Ot J18. 9 PNEUMONIA, UNSPECIFIED ORGANISM 07/20/2017 PRESTON LEWIS, NIXON A Ot N20.0 CALCULUS OF KIDNEY 07/20/2017 PRESTON LEWIS, NIXON A Ot N20.0 CALCULUS OF KIDNEY 11/20/2017 PRESTON LEWIS, NIXON A Ot N20.0 CALCULUS OF KIDNEY 01/10/2018 LIDYA, CIERA Pro V43.65 KNEE JOINT REPLACED BY OTHER MEANS 01/10/2018 LIDYA, CIERA Pro V45.89 OTHER POSTSURGICAL STATUS 01/10/2018 LIDYACIERA IBRAHIM Z96.651 PRESENCE OF RIGHT ARTIFICIAL KNEE JOINT 01/10/2018 LIDYACIERA IBRAHIM Z98.890 OTHER SPECIFIED POSTPROCEDURAL STATES 01/10/2018 LIDYACIERA IBRAHIM 724.2 LUMBAGO 01/10/2018 LIDYA, CIERA Pro 780.79 OTHER MALAISE AND FATIGUE 01/10/2018 LIDYA, CIERA Pro M54.5 LOW BACK PAIN 01/10/2018 LIDYA, CIERA Pro R53.1 WEAKNESS 01/10/2018 LIDYA, CIERA Pro V43.65 KNEE JOINT REPLACED BY OTHER MEANS 01/10/2018 LIDYACIERA IBRAHIM V45.89 OTHER POSTSURGICAL STATUS 01/10/2018 LIDYACIERA IBRAHIM Z96.651 PRESENCE OF RIGHT ARTIFICIAL KNEE JOINT 01/10/2018 LIDYACIERA IBRAHIM Z98.890 OTHER SPECIFIED POSTPROCEDURAL STATES 01/18/2018 LIDYA, CIERA Pro 724.2 LUMBAGO 01/18/2018 LIDYA, CIERA Chavez 780.79 OTHER MALAISE AND FATIGUE 01/18/2018 LIDYA, CIERA Pro M54.5 LOW BACK PAIN 01/18/2018 LIDYA, CIERA Chavez R53.1 WEAKNESS 01/18/2018 LIDYA, CIERA Pro V43.65 KNEE JOINT REPLACED BY OTHER MEANS 01/18/2018 LIDYA, CIERA Pro V45.89 OTHER POSTSURGICAL STATUS 01/18/2018 LIDYA, CIERA Pro Z96.651 PRESENCE OF RIGHT ARTIFICIAL KNEE JOINT 01/18/2018 CIERA BOSE Morteza Z98.890 OTHER SPECIFIED POSTPROCEDURAL STATES 01/29/2018 Roly Haji 844.9 SPRAIN OF UNSPECIFIED SITE OF KNEE AND LEG 01/29/2018 Roly Haji 881.00 OPEN WOUND OF FOREARM, WITHOUT MENTION OF COMPLICATION 01/29/2018 Roly Haji 913.0 ABRASION OR FRICTION BURN OF ELBOW, FOREARM, AND WRIST, WITHOUT MENTION OF INFECTION 01/29/2018 Roly Haji S50.811A ABRASION OF RIGHT FOREARM, INITIAL ENCOUNTER 01/29/2018 Roly Haji S51.811A LACERATION W/O FOREIGN BODY OF RIGHT FOREARM, INIT ENCNTR 01/29/2018 Roly Haji S83.91XA SPRAIN OF UNSPECIFIED SITE OF RIGHT KNEE, INITIAL ENCOUNTER Procedures There is no data. Results Test Result Range Arterial blood gas measurement - 7 16:10 Blood pCO2 47 mm[Hg] 35-45 Blood pO2 87 mm[Hg] 79-93 Arterial blood bicarbonate measurement (moles/volume) 28 mmol/L 23-27 Arterial blood base excess by calculation 3.8 mmol /L -2.5-2.5 Arterial blood oxygen saturation measurement 98 % 94-100 * Inhaled oxygen flow rate 4L NRG Arterial blood pH measurement with patient temperature correction 7.40 7.37-7.43 Arterial blood carbon dioxide, total measurement (mole s/volume) 29.8 mmol/L 21.0-31.0 Body site LT RAD NRG Assessment of wrist artery patency prior to arterial p uncture YES-POS NRG Setting of ventilation mode NO NR G Measurement of body temperature 98.4 NRG Complete blood count (CBC) with automate d white blood cell (WBC) differential - 10/23/16 16:10 Blood leukocytes automated count (number/volume) 7.9 10*3/uL 4.3-11.0 Blood erythrocytes automated count (number/volume) 5.11 10*6/uL 4.35-5.85 Venous blood hemoglobin measurement (mass/volume) 14.2 g/dL 11.5-16.0 Blood hematocrit (volume fraction) 44 % 35-52 Automated erythrocyte mean corpuscular volume 86 [ foz_us] 80-99 Automated erythrocyte mean corpuscular h emoglobin (mass per erythrocyte) 28 pg 25-34 Automated erythrocyte mean corpuscular h emoglobin concentration measurement (mass/volume) 33 g/dL 32-36 Automated erythrocyte distribution width ratio 14. 1 % 10.0- 14.5 Automated blood platelet count (count/volume) 258 10*3/uL 130-400 Automated blood platelet mean volume measurement 9.3 [foz_us] 7.4-10.4 Automated blood neutrophils/100 leukocytes 74 % 42-75 Automated blood lymphocytes/100 leukocytes 13 % 12-44 Blood monocytes/100 leukocytes 9 % 0-12 Automated blood eosinophils/100 leukocytes 4 % 0-10 Automated blood basophils/100 leukocytes 1 % 0-10 Blood neutrophils automated count (number/volume) 5.8 10*3 1.8-7.8 Blood lymphocytes automated count (number/volume) 1.0 10*3 1.0-4.0 Blood monocytes automated count (number/volume) 0. 7 10*3 0.0-1.0 Automated eosinophil count 0.3 10*3/uL 0 .0-0.3 Automated blood basophil count (count/volume) 0.0 10*3/uL 0.0-0.1 Comprehensive metabolic panel - 10/23/16 16:10 Serum or plasma sodium measurement (moles/volume) 143 mmol/L 135-145 Serum or plasma potassium measurement (moles/volume) 3.6 mmol/L 3.6-5.0 Serum or plasma chloride measurement (moles/volume) 102 mmol/L 98-107 Carbon dioxide 32 mmol/L 21-32 Serum or plasma anion gap determination (moles/volume) 9 mmol/L 5-14 Serum or plasma urea nitrogen measurement (mass/volume ) 9 mg/dL 7-18 Serum or plasma creatinine measurement (mass/volume) 0.72 mg/dL 0.60-1.30 Serum or plasma urea nitrogen/creatinine mass ratio 13 NRG Serum or plasma creatinine measurement w ith calculation of estimated glomerular filtration rate > NRG Serum or plasma glucose measurement (mass/volume) 107 mg/dL 70-105 Serum or plasma calcium measurement (mass/volume) 10.0 mg/dL 8.5-10.1 Serum or plasma total bilirubin measurement (mass/volu me) 0.9 mg/dL 0.1-1.0 Serum or plasma alkaline phosphatase ramon surement (enzymatic activity/volume) 68 U/L 40-136 Serum or plasma aspartate aminotransfera se measurement (enzymatic activity/volume) 18 U/L 5-34 Serum or plasma alanine aminotransferase measurement (enzymatic activity/volume) 13 U/L 0-55 Serum or plasma protein measurement (mass/volume) 7.1 g/dL 6.4-8.2 Serum or plasma albumin measurement (mass/volume) 4.6 g/dL 3.2-4.5 Magnesium - 10/23/16 16:10 Magnesium 2.3 mg/dL 1.8-2.4 Lipase - 10/23/16 16:10 Lipase 96 U/L 8-78 Serum or plasma troponin i.cardiac measu rement (mass/volume) - 10/23/16 16:10 Serum or plasma troponin i.cardiac measurement (mass/v olume) < ng/mL <0.30 Serum or plasma lithium measurement (mol es/volume) - 10/23/16 16:10 BNP level 171.2 pg/mL <100.0 PT panel in platelet poor plasma by coag ulation assay - 10/23/16 16:10 Prothrombin time (PT) in platelet poor plasma by coagu lation assay 13.2 s 12.2-14.7 INR in platelet poor plasma or blood by coagulation as say 1.0 0.8-1.4 Activated partial thromboplastin time (a PTT) in platelet poor plasma bycoagulation assay - 10/23/16 16:10 Activated partial thromboplastin time (a PTT) in platelet poor plasma bycoagulation assay 29 s 24-35 Complete blood count (CBC) with automate d white blood cell (WBC) differential - 11/14/16 15:10 Blood leukocytes automated count (number/volume) 7.3 10*3/uL 4.3-11.0 Blood erythrocytes automated count (number/volume) 4.33 10*6/uL 4.35-5.85 Venous blood hemoglobin measurement (mass/volume) 12.1 g/dL 11.5-16.0 Blood hematocrit (volume fraction) 37 % 35-52 Automated erythrocyte mean corpuscular volume 86 [ foz_us] 80-99 Automated erythrocyte mean corpuscular h emoglobin (mass per erythrocyte) 28 pg 25-34 Automated erythrocyte mean corpuscular h emoglobin concentration measurement (mass/volume) 32 g/dL 32-36 Automated erythrocyte distribution width ratio 14. 2 % 10.0- 14.5 Automated blood platelet count (count/volume) 232 10*3/uL 130-400 Automated blood platelet mean volume measurement 9.1 [foz_us] 7.4-10.4 Automated blood neutrophils/100 leukocytes 73 % 42-75 Automated blood lymphocytes/100 leukocytes 16 % 12-44 Blood monocytes/100 leukocytes 8 % 0-12 Automated blood eosinophils/100 leukocytes 3 % 0-10 Automated blood basophils/100 leukocytes 1 % 0-10 Blood neutrophils automated count (number/volume) 5.3 10*3 1.8-7.8 Blood lymphocytes automated count (number/volume) 1.2 10*3 1.0-4.0 Blood monocytes automated count (number/volume) 0. 6 10*3 0.0-1.0 Automated eosinophil count 0.2 10*3/uL 0 .0-0.3 Automated blood basophil count (count/volume) 0.0 10*3/uL 0.0-0.1 PT panel in platelet poor plasma by coag ulation assay - 11/14/16 15:10 Prothrombin time (PT) in platelet poor plasma by coagu lation assay 13.3 s 12.2-14.7 INR in platelet poor plasma or blood by coagulation as say 1.0 0.8-1.4 Activated partial thromboplastin time (a PTT) in platelet poor plasma bycoagulation assay - 11/14/16 15:10 Activated partial thromboplastin time (a PTT) in platelet poor plasma bycoagulation assay 30 s 24-35 Comprehensive metabolic panel - 11/14/16 15:10 Serum or plasma sodium measurement (moles/volume) 145 mmol/L 135-145 Serum or plasma potassium measurement (moles/volume) 3.2 mmol/L 3.6-5.0 Serum or plasma chloride measurement (moles/volume) 106 mmol/L 98-107 Carbon dioxide 30 mmol/L 21-32 Serum or plasma anion gap determination (moles/volume) 9 mmol/L 5-14 Serum or plasma urea nitrogen measurement (mass/volume ) 13 mg/dL 7-18 Serum or plasma creatinine measurement (mass/volume) 0.93 mg/dL 0.60-1.30 Serum or plasma urea nitrogen/creatinine mass ratio 14 NRG Serum or plasma creatinine measurement w ith calculation of estimated glomerular filtration rate 60 NRG Serum or plasma glucose measurement (mass/volume) 107 mg/dL 70-105 Serum or plasma calcium measurement (mass/volume) 9.6 mg/dL 8.5-10.1 Serum or plasma total bilirubin measurement (mass/volu me) 0.5 mg/dL 0.1-1.0 Serum or plasma alkaline phosphatase ramon surement (enzymatic activity/volume) 63 U/L 40-136 Serum or plasma aspartate aminotransfera se measurement (enzymatic activity/volume) 13 U/L 5-34 Serum or plasma alanine aminotransferase measurement (enzymatic activity/volume) 11 U/L 0-55 Serum or plasma protein measurement (mass/volume) 6.3 g/dL 6.4-8.2 Serum or plasma albumin measurement (mass/volume) 4.1 g/dL 3.2-4.5 Magnesium - 11/14/16 15:10 Magnesium 2.3 mg/dL 1.8-2.4 Serum or plasma troponin i.cardiac measu rement (mass/volume) - 11/14/16 15:10 Serum or plasma troponin i.cardiac measurement (mass/v olume) < ng/mL <0.30 Myoglobin, serum - 11/14/16 15:10 Myoglobin, serum 44.1 ng/mL 10.0-92.0 Lipase - 11/14/16 15:10 Lipase 54 U/L 8-78 Encounters ACCT No. Visit Date/Time Discharge Status Pt. Type Provider Facility Loc./Unit Complaint [id number] 07/20/2017 08:56:00 018 23:59:59 CLS Outpatient NIXON JOHNSTON MD [facility] RAD ABD PAIN [id number] 11/14/2016 14:01:00 017 16:12:00 DIS Emergency YULIANA DAMIAN MD [facility] ER CHEST CONGESTIO N [id number] 10/12/2016 10:44:00 017 13:01:00 DIS Outpatient KARLA WALKER [facility] REHAB LUMBAR SPONDYLOSIS;R HI P,GROIN,SI PAIN [id number] 10/23/2016 15:52:00 017 19:25:00 DIS Emergency TANISHA CHAWLA [facility] ER SOA,BACK PAIN [id number] 10/23/2015 09:55:00 016 23:59:59 CLS Outpatient NIXON JOHNSTON MD [facility] RAD RT URETEAL OBSTRUCTION [id number] 10/20/2015 11:31:00 016 23:59:59 CLS Outpatient NIXON JOHNSTON MD [facility] RAD ABDOMEN/BACK PAIN,INCON TINENCE [id number] 09/05/2015 09:01:00 016 12:30:00 DIS Emergency VISHAL GARBER MD [facility] ER CONGESTION, DIFFICULTY BREATHING [id number] 07/22/2015 15:52:00 016 23:59:59 CLS Outpatient BRENDA WADE DO [facility] LAB PNUEMONIA [id number] 07/11/2015 13:45:00 016 17:20:00 DIS Emergency YULIANA DAMIAN MD [facility] ER SOA [id number] 06/07/2015 14:03:00 015 15:57:00 DIS Emergency [facility] ER SOA [id number] 12/13/2014 12:37:00 015 23:59:59 CLS Outpatient [facility] QUICK [id number] 11/15/2014 17:59:00 015 19:11:00 DIS Emergency XIMENA BAEZA MD [facility] ER COUGH [id number] 09/14/2013 17:13:00 014 23:59:59 CLS Outpatient [id number] 02/06/2018 10:34:00 02/06/2018 23:59: 00 DIS Outpatient CIERA BOSE [id number] 01/29/2018 10:37:00 01/29/2018 14:48: 00 DIS Outpatient [facility] [id number] 01/09/2018 07:52:00 01/18/2018 09:10: 00 DIS Outpatient CIERA BOSE [id number] 01/05/2018 11:11:00 01/05/2018 23:59: 00 DIS Outpatient CIERA BOSE [id number] 01/05/2018 10:10:00 01/05/2018 23:59: 00 DIS Outpatient CIERA BOSE
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
[2019-10-08 23:30] LABS: BASOPHILS % (AUTO) 1 % (0-10); EOSINOPHILS # (AUTO) 0.1 10^3/uL (0.0-0.3); EOSINOPHILS % (AUTO) 1 % (0-10); HEMATOCRIT 36 % (35-52); LYMPHOCYTES # (AUTO) 1.1 X 10^3 (1.0-4.0); LYMPHOCYTES % (AUTO) 20 % (12-44); MEAN CORPUSCULAR HEMOGLOBIN 29 PG (25-34); MEAN CORPUSCULAR HGB CONC 33 G/DL (32-36); MEAN CORPUSCULAR VOLUME 87 FL (80-99); MEAN PLATELET VOLUME 9.1 FL (7.4-10.4); MONOCYTES # (AUTO) 0.8 X 10^3 (0.0-1.0); MONOCYTES % (AUTO) 15 % (0-12); NEUTROPHILS # (AUTO) 3.5 X 10^3 (1.8-7.8); NEUTROPHILS % (AUTO) 64 % (42-75); PLATELET COUNT 260 10^3/uL (130-400); RED CELL DISTRIBUTION WIDTH 14.2 % (10.0-14.5); WHITE BLOOD COUNT 5.5 10^3/uL (4.3-11.0)
[2019-10-08 23:35] LABS: POTASSIUM 4.1 MMOL/L (3.6-5.0)
[2019-10-08 23:36] LABS: CALCIUM 9.7 MG/DL (8.5-10.1)
[2019-10-08 23:40] LABS: CREATININE SERUM 1.25 MG/DL (0.60-1.30)
[2019-10-09 00:19] VITALS: BP 124/60
--- NOTE | 2019-10-09 06:57 | Diagnostic Imaging Report ---
EXAMINATION: Portable erect AP chest at 1126h. INDICATION: Cough The heart size is within normal limits and stable when compared to 11/14/2016. The chronic pulmonary changes noted on the prior study are again visualized and no different. There is no sign of failure, pneumonia or a pleural effusion. The mediastinum is not widened. The osseous structures are intact. IMPRESSION: There is chronic pulmonary disease but there is no evidence for an acute cardiopulmonary abnormality. Dictated by: Dictated on workstation # [id number]
== END 2019-10-09 00:19 | disposition home or self-care (01) ==
LOC: EDUNIT# 22:43 → ER 22:47
DX: J44.0 Chronic obstructive pulmonary disease with (acute) lower respiratory infection (principal); J20.9 Acute bronchitis, unspecified; Z99.2 Dependence on renal dialysis; E78.00 Pure hypercholesterolemia, unspecified; I10 Essential (primary) hypertension; I73.9 Peripheral vascular disease, unspecified; Z87.19 Personal history of other diseases of the digestive system; Z79.899 Other long term (current) drug therapy
CPT/HCPCS: 36415; 71045; 80048; 83615; 84145; 85025; 86141; 87635

== ENCOUNTER → 2019-11-11 | Outpatient (CLI) | payer MEDICARE ==
--- NOTE | 2019-11-11 10:01 | Diagnostic Imaging Report ---
INDICATION: COPD, followup. TIME OF EXAM: 9:44 AM. COMPARISON: 10/08/2019. FINDINGS: The heart size is stable. The lungs are hyperinflated, consistent with COPD. No infiltrates are seen. There is no effusion or pneumothorax. Chronic compression deformity in the lower thoracic vertebral body is stable when compared with the prior study dating back to October 2016. IMPRESSION: COPD. No acute feature is detected. Dictated by: Dictated on workstation # [id number]
== END ==
LOC: RAD 09:20
PROVIDERS: ATTEND Internal Medicine Critical Care Medicine
DX: J43.9 Emphysema, unspecified (principal)
CPT/HCPCS: 71046

== ENCOUNTER 2020-06-06 17:06 | Emergency (ER) | payer MEDICARE ==
[~2020-06-06] VITALS: Ht 170.2 cm; Wt 48.1 kg
[2020-06-06] MEDS ORDERED: LACTATED RINGERS 1,000 ML IV ONE (17:30)
[2020-06-06] MEDS ORDERED: fentaNYL INJECTION 100 MCG/2 ML AMP IVP ONE (17:30)
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
[2020-06-06 17:40] LABS: BASOPHILS % (AUTO) 1 % (0-10); EOSINOPHILS # (AUTO) 0.1 10^3/uL (0.0-0.3); EOSINOPHILS % (AUTO) 1 % (0-10); HEMATOCRIT 38 % (35-52); HEMOGLOBIN 11.6 g/dL (11.5-16.0); LYMPHOCYTES # (AUTO) 1.1 10^3/uL (1.0-4.0); LYMPHOCYTES % (AUTO) 13 % (12-44); MEAN CORPUSCULAR HEMOGLOBIN 29 pg (25-34); MEAN CORPUSCULAR HGB CONC 31 g/dL (32-36); MEAN CORPUSCULAR VOLUME 92 fL (80-99); MEAN PLATELET VOLUME 9.1 fL (9.0-12.2); MONOCYTES # (AUTO) 0.8 10^3/uL (0.0-1.0); MONOCYTES % (AUTO) 10 % (0-12); NEUTROPHILS # (AUTO) 6.4 10^3/uL (1.8-7.8); NEUTROPHILS % (AUTO) 75 % (42-75); PLATELET COUNT 329 10^3/uL (130-400); WHITE BLOOD COUNT 8.5 10^3/uL (4.3-11.0)
[2020-06-06 17:42] LABS: ALBUMIN 4.4 GM/DL (3.2-4.5); POTASSIUM 4.4 MMOL/L (3.6-5.0)
[2020-06-06 17:43] LABS: CALCIUM 9.3 MG/DL (8.5-10.1)
[2020-06-06 17:46] LABS: BILIRUBIN,TOTAL 0.4 MG/DL (0.1-1.0)
[2020-06-06 17:48] LABS: CREATININE SERUM 1.39 MG/DL (0.60-1.30)
--- NOTE | 2020-06-06 18:33 | Diagnostic Imaging Report ---
INDICATION: Left hip pain. COMPARISON: None. EXAMINATION: Single frontal radiographic view of the pelvis and two dedicated radiographic views of the left hip were obtained. FINDINGS: There is acute nondisplaced intertrochanteric fracture of the proximal left femur. Left femoral acetabular joint space is maintained. Patient is status post previous total right hip replacement. There is no evidence of periprostatic fracture. Hardware appears appropriately aligned on the single frontal view of the pelvis. No additional acute pelvic abnormality is identified. Stent graft material is noted within the lower abdomen. IMPRESSION: Acute fracture of the proximal left femur. Dictated by: Dictated on workstation # [id number]
--- NOTE | 2020-06-06 18:39 | Diagnostic Imaging Report ---
PROCEDURE: CT head and CT cervical spine without contrast. TECHNIQUE: Multiple contiguous axial images were obtained through the brain and cervical spine without the use of intravenous contrast. Sagittal and coronal reformations through the cervical spine were then performed. Auto Exposure Controls were utilized during the CT exam to meet ALARA standards for radiation dose reduction. INDICATION: Fall. Left hip fracture. COMPARISON: None FINDINGS: CT head: The ventricles and cortical sulci are diffusely prominent, compatible with age-related volume loss. There are confluent areas of abnormal, low attenuation in the periventricular white matter. This is consistent with small vessel ischemic changes; age-indeterminate. There is no prior study available for comparison. There is no midline shift or mass-effect. No acute intra-axial hemorrhage is seen. There are no abnormal areas of increased or decreased density to suggest acute hemorrhage or edema. No extra-axial masses or collections are present. The bony calvarium is intact. The visualized paranasal sinuses are unremarkable. The mastoid air cells are clear. CT cervical spine: Evaluation of the static alignment of the cervical spine shows slight grade 1 anterolisthesis at C3-C4, C6-C7, and C7-T1. Findings may relate to underlying degenerative changes. There is no evidence of jumped facets. Vertebral body heights are maintained. There is no acute fracture. No bony fragments are seen within the spinal canal. Moderate multilevel degenerative changes are noted and consist with intervertebral disc height loss and prominent multilevel facet arthropathy. Pre and paravertebral soft tissue structures are unremarkable. Note is made of calcified carotid atherosclerosis. Included portions of the lung apices show background emphysematous disease. IMPRESSION: 1. No acute intracranial abnormality. No CT evidence of mass, acute infarct or intracranial hemorrhage. 2. Small vessel ischemic changes in the periventricular and subcortical white matter; likely chronic. 3. Moderate multilevel degenerative changes of the cervical spine, no acute fracture or dislocation. 4. Other nonemergent findings as described above. Dictated by: Dictated on workstation # [id number]
[2020-06-06] MEDS ORDERED: morphine INJ 10 MG/ML 1ML (SYR OR VIAL) IVP STA ×2 (18:41→19:23)
--- NOTE | 2020-06-06 18:45 | Diagnostic Imaging Report ---
INDICATION: Fall. Hip fracture. COMPARISON: 11/11/2019. EXAMINATION: Single frontal view of the chest was obtained. FINDINGS: Normal heart size and pulmonary vascularity. The lungs are mildly hyperinflated, but are otherwise clear. No large pleural effusion or pneumothorax is seen. The visualized osseous structures show no acute abnormality. IMPRESSION: 1. No acute cardiopulmonary process. 2. Mildly hyperinflated appearance of the lungs. Please correlate for underlying obstructive pulmonary disease. Dictated by: Dictated on workstation # [id number]
--- NOTE | 2020-06-06 19:30 | NUR ---
DR. OBREGON SPOKE WITH PT AND UPDATED ON CONDITION AND TO BE TRANSFERRED TO [facility] [facility] FOR LEFT HIP FX.
[2020-06-06 19:46] LABS: BILIRUBIN,URINE NEGATIVE (NEGATIVE); GLUCOSE, URINE (UA) TRACE (NEGATIVE); KETONES,URINE NEGATIVE (NEGATIVE); LEUKOCYTE ESTERASE ,URINE 1+ (NEGATIVE); NITRITE,URINE POSITIVE (NEGATIVE); PROTEIN,URINE TRACE (NEGATIVE)
[2020-06-06 19:53] LABS: COLOR,URINE DK YELLOW
[2020-06-06 19:55] VITALS: BP 103/49
[2020-06-06 19:55] LABS: CLARITY,URINE SLIGHTLY CLOUDY
[2020-06-06 19:56] LABS: BACTERIA,URINE TRACE /HPF; HYALINE CASTS, URINE 0-2 /LPF; RENAL EPITHELIAL CELLS,URINE 0-2 /HPF; WHITE BLOOD CELL CASTS, URINE 0-2 /LPF
== END 2020-06-06 19:55 | disposition short-term general hospital (02) ==
LOC: EDUNIT# 17:06 → ER 17:08
DX: S72.145A Nondisplaced intertrochanteric fracture of left femur, initial encounter for closed fracture (principal); C34.90 Malignant neoplasm of unspecified part of unspecified bronchus or lung; I10 Essential (primary) hypertension; J44.9 Chronic obstructive pulmonary disease, unspecified; E78.00 Pure hypercholesterolemia, unspecified; Z87.891 Personal history of nicotine dependence; Z79.52 Long term (current) use of systemic steroids; W01.0XXA Fall on same level from slipping, tripping and stumbling without subsequent striking against object, initial encounter
CPT/HCPCS: 36415; 51702; 70450; 71045; 72125; 80053; 81000; 85025; 87088; 96361; 96374; 96375; 96376